=== PATIENT | female | born 1945 | race Caucasian/White ===

== ENCOUNTER 2017-07-21 08:27 | Emergency (ER) | payer BC ==
--- NOTE | 2017-07-21 09:07 | RAD ---
LEFT ANKLE THREE VIEWS: History: 71-year-old female with left ankle pain following a twisting injury after being tripped on stairs, f all. FINDINGS: Mild degenerative changes of the left ankle and joint. No acute fracture or dislocation. IMPRESSION: Degenerative changes without fracture or dislocation. POS: OFF
== END 2017-07-21 09:13 | disposition home or self-care (01) ==
LOC: SCSER 08:27
DX: S93.402A Sprain of unspecified ligament of left ankle, initial encounter (principal); E78.5 Hyperlipidemia, unspecified; I10 Essential (primary) hypertension; W18.30XA Fall on same level, unspecified, initial encounter

== ENCOUNTER 2017-10-22 10:25 | Outpatient (CLI) | payer OTHER ==
[2017-10-22] MEDS ORDERED: Iopamidol 370 76% 100 ML VIAL ONE (13:17)
--- NOTE | 2017-10-22 14:33 | CT ---
CTA OF THE ABDOMEN AND PELVIS WITH BILATERAL LOWER EXTREMITY RUNOFF UTILIZING IV CONTRAST AND 3D REFO RMATTED IMAGING: INDICATION: A 72-year-old female with a history of atherosclerotic disease within the abdomen and pelvis with per ipheral arterial disease into the extremities. The patient is having intermittent vascular claudicat ion. The patient is complaining more of pain and cramping in the right leg. The patient has a histo ry of triple cardiac bypass and stents in the leg. COMPARISON: Prior CTA of the abdomen and pelvis with bilateral lower extremity runoff dated 08/23/15. FINDINGS: ABDOMEN: There is mild bibasilar atelectasis. The liver, spleen, and adrenal glands appear within normal limits. The kidneys are normal-appearing. No free fluid or enlarged lymph nodes are evident. PELVIS: The uterus is surgically absent. The bladder, rectum, and perirectal soft tissues are unremarkable. There is scattered diverticula involving the colon without evidence of active diverticulitis. There is a normal appendix in the right lower quadrant. No free fluid or enlarged lymph nodes are evident. There is scattered degenerative and osteoarthritic change. No definite acute fracture or subluxation is noted. There are surgical clips seen within the medial soft tissues of the left foreleg and left knee consistent with saphenous vein graft harvesting. VASCULATURE: There is moderate to severe atherosclerotic calcification involving the abdominal aorta and pelvic va sculature. No aneurysmal dilatation is evident. No appreciable stenosis seen involving the aorta. There has been interval placement of endograft stent within the left common iliac artery. The stents appear to be patent. There is mild atherosclerotic narrowing involving the origin of the celiac which is stable to the augustina or exam. There is moderate narrowing of the origin of the celiac artery which is stable to the prior exam. There is mild narrowing involving the SMA origin. There is stable severe narrowing involving the origin and proximal 1/3 segment of the left renal artery. There is mild to moderate narrowing in volving the origin of the right renal artery. There is a duplicated right renal artery that appears to be patent. The HERNANDEZ appears to be patent. The left external iliac artery is widely patent. There is some mild narrowing involving the proximal left common femoral artery. There is severe narrowing involving the origin of the left profunda fem oral artery. There is mild atherosclerotic irregularity involving the left superficial femoral arter y and proximal left popliteal artery. There is moderate narrowing involving the proximal aspect of t he left anterior tibial artery that is stable to the prior exam. The tibioperoneal trunk is patent. There is at least 3-vessel runoff to the level of the ankle. The left common iliac artery demonstrates some mild atherosclerotic irregularity which is stable to t he prior exam. The iliac bifurcation is patent. The right common iliac artery demonstrates some mil d atherosclerotic irregularity. There is mild atherosclerotic narrowing involving the right common f emoral artery. There is moderate narrowing involving the origin of the right profunda femoral artery which has progressed from the prior exam. There is mild atherosclerotic irregularity involving the right superficial femoral artery. There is mild atherosclerotic irregularity involving the right pop liteal artery. There is moderate narrowing involving the proximal anterior tibial artery that appear s slightly worsened from the prior exam. The tibioperoneal trunk appears patent. There is 3-vessel runoff to the level of the ankle. IMPRESSION: 1. Stable moderate celiac and mild superior mesenteric artery origin narrowing. 2. Stable severe left and mild to moderate right main renal artery stenosis. 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 3. Interval endograft stenting of the left common iliac artery. The stent is patent. There is mild to moderate atherosclerotic irregularity involving the distal left superficial femoral artery which appears stable to the prior exam. There is stable moderate atherosclerotic narrowing involving the o rigin and proximal aspect of the left anterior tibial artery. 4. Mild atherosclerotic irregularity involving the right superficial femoral artery and right poplit eal artery. There is worsening moderate narrowing involving the proximal right anterior tibial arter y when compared to the prior exam. 5. Colonic diverticulosis. 6. Other chronic findings as above. POS: DIANNE
== END 2017-10-22 10:26 | disposition home or self-care (01) ==
LOC: CT 10:25
PROVIDERS: ATTEND Thoracic Surgery (Cardiothoracic Vascular Surgery)
DX: I70.213 Atherosclerosis of native arteries of extremities with intermittent claudication, bilateral legs (principal); I77.1 Stricture of artery; K57.30 Diverticulosis of large intestine without perforation or abscess without bleeding; Z95.820 Peripheral vascular angioplasty status with implants and grafts
CPT/HCPCS: 36415; 75635; 82565

== ENCOUNTER 2017-11-26 10:13 | Outpatient (CLI) | payer OTHER ==
[2017-11-26 11:41] LABS: Hemoglobin 11.8 g/dL (12.0-16.0); Mean Corpuscular HGB CONC 33.3 g/dL (32.0-36.0); Mean Corpuscular Hemoglobin 30.3 pg (27.0-31.0); Mean Corpuscular Volume 90.8 fl (81.0-99.0); Mean Platelet Volume 7.6 fL (7.4-10.4); Platelet Count 164 thou/uL (130-400); RBC Distribution Width 12.8 % (11.5-14.5); Red Blood Cell (RBC) Count 3.89 mill/uL (4.20-5.40); White Blood Cell (WBC) Count 6.2 thou/uL (4.8-10.8)
[2017-11-26 11:52] LABS: Anion Gap 12 mmol/L (10-20); BUN (Urea Nitrogen) 20 mg/dL (9.8-20.1); Calc. Creatinine Clearance 0 mL/min (70-130); Calcium 9.5 mg/dL (7.8-10.44); Carbon Dioxide 28 mmol/L (23-31); Chloride 103 mmol/L (98-107); Estimated GFR-MDRD 66; Glucose 106 mg/dL (80-115); Potassium 4.8 mmol/L (3.5-5.1); Sodium 138 mmol/L (136-145)
== END 2017-11-26 10:14 | disposition home or self-care (01) ==
LOC: LABBT 10:13
PROVIDERS: ATTEND Thoracic Surgery (Cardiothoracic Vascular Surgery)
DX: Z01.812 Encounter for preprocedural laboratory examination (principal); I70.213 Atherosclerosis of native arteries of extremities with intermittent claudication, bilateral legs
CPT/HCPCS: 80048; 85027

== ENCOUNTER → 2017-11-29 | Day surgery (SDC) | payer OTHER ==
--- NOTE | 2017-11-25 10:29 | HP ---
HISTORY OF PRESENT ILLNESS: This is a 72-year-old female who has a history of peripheral arterial di sease, who presented about 6 weeks ago with rest pain in her right foot for the prior 3 weeks such th at she was unable to rest. She has been sleeping in a chair for relief. She is able to walk and her leg does give out with walking, but not really a limiting problem. She has had prior left common il iac stent for chronic total occlusion in 08/2015. PAST MEDICAL HISTORY: Hypertension, dyslipidemia, coronary artery disease, moderate carotid artery d isease. PAST SURGICAL HISTORY: Includes coronary bypass grafting x3 in 1998, stenting of the left common deandra ac artery, oophorectomy, hysterectomy. SOCIAL HISTORY: The patient has not smoked in greater than 10 years. She does not drink. ALLERGIES: None known. MEDICATIONS: Pletal 100 b.i.d., venlafaxine 75 daily, hydroxyzine p.r.n., atorvastatin 40 daily, mon telukast sodium 10 mg daily, aspirin 81 a day, Coreg 12.5 b.i.d., lisinopril 20 b.i.d., Plavix 75 a d ay, amlodipine 2.5 a day. PHYSICAL EXAMINATION: GENERAL: Alert and cooperative lady. VITAL SIGNS: Blood pressure 130/60, heart rate 90, weight 240. NECK: Right carotid bruit. CARDIAC: Regular rate and rhythm. No murmurs. LUNGS: Clear to auscultation bilaterally. ABDOMEN: Obese, nontender. EXTREMITIES: She has no peripheral edema. She has palpable left dorsalis pedis pulse and otherwise I cannot feel any other pulses. I am unable to feel femoral pulses and this is not a new issue. Her arm pressure is 150 and her left dorsalis pedis is 90 and biphasic, and a left posterior tibial 90 a nd triphasic. Right dorsalis pedis is 40 and monophasic and posterior tibial was [address] scan shows multiple levels of disease, although none particularly critical. PLAN: At this time is for angiography with probable puncture of the left femoral artery with ultraso und guidance to try and address right lower extremity circulatory problems.
[2017-11-26 10:42] VITALS: BMI 39.8
[~2017-11-29] MED LIST: Heparin 10,000 UNITS/1 ML VIAL ONE; Iopamidol 370 76% 50 ML VIAL FS ONE; Lidocaine 1% (PF) 30 ML VIAL ONE; Midazolam HCl 2 mg/2 ml Vial ONE; Protamine Sulfate 50 MG/5 ML VIAL ONE
--- NOTE | 2017-11-29 08:49 | OP ---
DATE OF PROCEDURE: 11/29/2017 PREOPERATIVE DIAGNOSIS: Rest pain right great toe. PROCEDURE: Abdominal aortogram and right lower extremity runoff, stent placement, right common iliac artery 6 x 17 mm, right external iliac artery 6 x 40 Innova self-expanding stent, left common iliac artery 7 x 17 Express. CONTRAST: 64 mL. FLUOROSCOPY: 13 minutes. PROCEDURE IN DETAIL: After prepping and draping there were no palpable femoral pulses. Ultrasound w as attempted; however, the vessel could never really be clearly identified on the left. Fluoroscopy was then used to guide puncture of the calcified common femoral artery with a micropuncture wire and then exchanged for a 5-Burmese sheath. Angiography was then obtained through the sheath and with the assistance of a Yan catheter and a Verenium wire was advanced into the aorta where a Contra catheter was placed and iliofemoral angiograms obtained. Following this, the right groin was infiltrated wit h lidocaine and fluoroscopy was used to guide puncture of the common femoral artery. Once again, thi s was done with a micropuncture and then converted to a 5-Burmese sheath. Retrograde angiography was obtained, following which the 5 Burmese sheath were exchanged for a long 6 Burmese marker sheaths. Aft er this had been done, the common iliac stents were simultaneously deployed following which the kimberly ter on the right groin was withdrawn and a 6 x 40 Innova stent was placed following which 2 inflation s with the second one being for a minute were performed with a 5 mm balloon. FINDINGS: The patient had a calcified aorta with probably 40-50% stenosis distally. The right comm on iliac appeared to be 60-70% narrowed and the left common iliac 60% above the previous stent. Righ t external iliac had a 90% stenosis in its distal third. The right common femoral artery was heavily calcified with a significant stenosis at the ostium of the superficial and profunda femoral artery. A heavy calcification extended for about 3 cm distally on the superficial femoral artery. Runoff de monstrated probably 80% stenosis of the distal SFA with a calcified popliteal artery on the right wit h maybe a 40-50% stenosis. Runoff consisted of all 3 vessels with no significant stenosis. Followin g completion of the stenting, there was no residual common iliac artery stenosis. The right external iliac artery was widely patent, although there was still some protrusion of the calcium plaque into the stent lumen. The patient tolerated the procedure well.
== END ==
LOC: CCL 05:51
PROVIDERS: ATTEND Thoracic Surgery (Cardiothoracic Vascular Surgery)
PROC: 047C3DZ Dilation of Right Common Iliac Artery with Intraluminal Device, Percutaneous Approach (ICD-10-PCS; principal; 2017-11-29)
PROC: 047H3DZ Dilation of Right External Iliac Artery with Intraluminal Device, Percutaneous Approach (ICD-10-PCS; principal; 2017-11-29)
PROC: 047D3DZ Dilation of Left Common Iliac Artery with Intraluminal Device, Percutaneous Approach (ICD-10-PCS; principal; 2017-11-29)
DX: I70.221 Atherosclerosis of native arteries of extremities with rest pain, right leg (principal); I10 Essential (primary) hypertension; E78.5 Hyperlipidemia, unspecified; I25.10 Atherosclerotic heart disease of native coronary artery without angina pectoris; Z79.02 Long term (current) use of antithrombotics/antiplatelets; Z79.899 Other long term (current) drug therapy; Z98.890 Other specified postprocedural states; Z87.891 Personal history of nicotine dependence
CPT/HCPCS: 37221; 37223; 76942; 80048; 85027; 85347; 99152; 99153; C1725; C1769; C1876; J1644; J2001; J2250; J2720

== ENCOUNTER 2018-02-15 10:34 | Outpatient (CLI) | payer OTHER ==
--- NOTE | 2018-02-15 13:16 | RAD ---
TWO VIEW CHEST: Indication: Shortness of breath. FINDINGS: There is enlargement of the cardiac silhouette and bilateral interstitial prominence. Mild pleural fl uid is seen on the right. Evidence of prior sternotomy. IMPRESSION: CHF with mild right pleural fluid as well as interstitial edema. Recommend continued follow up. POS: DIANNE
== END 2018-02-15 10:35 | disposition home or self-care (01) ==
LOC: SCSRAD 10:34
PROVIDERS: ATTEND Nurse Practitioner Family
DX: J94.8 Other specified pleural conditions (principal); J81.1 Chronic pulmonary edema; I50.9 Heart failure, unspecified
CPT/HCPCS: 71046

== ENCOUNTER 2018-02-15 15:59 | Inpatient (IN) | payer OTHER ==
[2018-02-15 16:42] LABS: #Eosinphils 0.2 thou/uL (0.0-0.7); #Lymphocytes 1.7 thou/uL (1.20-3.40); #Monocytes 0.8 thou/uL (0.11-0.59); %Basophils 0.2 % (0.0-1.0); %Eosinophils 3.1 % (0.0-10.0); %Lymphocytes 30.2 % (21.0-51.0); %Monocytes 13.9 % (0.0-10.0); %Neutrophils 52.6 % (42.0-75.0); Hemoglobin 11.2 g/dL (12.0-16.0); Mean Corpuscular HGB CONC 32.8 g/dL (32.0-36.0); Mean Corpuscular Hemoglobin 29.9 pg (27.0-31.0); Mean Corpuscular Volume 91.2 fl (81.0-99.0); Platelet Count 145 thou/uL (130-400); RBC Distribution Width 13.8 % (11.5-14.5); Red Blood Cell (RBC) Count 3.74 mill/uL (4.20-5.40); White Blood Cell (WBC) Count 5.7 thou/uL (4.8-10.8)
[2018-02-15 16:55] LABS: ALT (SGPT) 25 U/L (8-55); AST (SGOT) 37 U/L (5-34); Albumin 4.1 g/dL (3.4-4.8); Alkaline Phosphatase 57 U/L (40-150); Anion Gap 10 mmol/L (10-20); BUN (Urea Nitrogen) 13 mg/dL (9.8-20.1); Bilirubin, Total 0.6 mg/dL (0.2-1.2); CK (CPK) 42 U/L (29-168); Calc. Creatinine Clearance 0 mL/min (70-130); Calcium 9.5 mg/dL (7.8-10.44); Carbon Dioxide 25 mmol/L (23-31); Chloride 107 mmol/L (98-107); Estimated GFR-MDRD 80; Globulin 2.8 g/dL (2.4-3.5); Glucose 99 mg/dL (80-115); Potassium 4.5 mmol/L (3.5-5.1); Protein, Total 6.9 g/dL (6.0-8.3); Sodium 137 mmol/L (136-145)
[2018-02-15 17:00] LABS: CKMB 0.6 ng/mL (0-6.6); Troponin I Less than 0.010 ng/mL (< 0.028)
[2018-02-15] MEDS ORDERED: hydrALAZINE 20 MG/ML VIAL ONE (17:10)
[2018-02-15] MEDS ORDERED: Furosemide 40 MG/4 ML VIAL ONE (18:05)
[2018-02-15] MEDS ORDERED: Ondansetron HCl/PF 4 MG/2 ML Vial ONE (18:08)
[2018-02-15] MEDS ORDERED: Ondansetron HCl/PF 4 MG/2 ML Vial IVP PRN (19:22)
[2018-02-15] MEDS ORDERED: Ondansetron ODT 4 MG TAB SL PRN (19:22)
[2018-02-15 19:43] VITALS: BMI 41.3
[2018-02-15 20:15] LABS: Troponin I Less than 0.010 ng/mL (< 0.028)
[2018-02-15] MEDS ORDERED: Acetaminophen 325 MG TAB PO PRN (20:15)
[2018-02-15] MEDS ORDERED: Zolpidem Tartrate 5 MG TAB PO PRN (20:15)
[2018-02-15] MEDS ORDERED: PROVENTIL INHALER 6.7 G (200 INHALATIONS) INH PRN (20:20)
[2018-02-15] MEDS ORDERED: hydrOXYzine 25 MG TAB PO PRN (20:20)
[2018-02-15] MEDS ORDERED: hydrALAZINE 20 MG/ML VIAL SLOW IVP PRN (20:22)
[2018-02-15] MEDS ORDERED: Amlodipine 5 MG TAB PO SCH (21:00)
[2018-02-15] MEDS: Fish Oil 1,000 MG CAP PO SCH (21:21)
[2018-02-15] MEDS: Gabapentin 300 MG CAP PO SCH (21:21)
[2018-02-15] MEDS: Calcium Carbonate + Vit D 1 TAB PO SCH (21:21)
[2018-02-15] MEDS: Carvedilol 25 MG TAB PO SCH (21:22)
[2018-02-15] MEDS: Clopidogrel Bisulfate 75 MG TAB PO SCH (21:23)
[2018-02-15] MEDS: Venlafaxine HCl XR 75 MG CAP PO SCH (21:23)
[2018-02-15] MEDS: Aspirin 81 mg Enteric Coated Tablet PO SCH (21:23)
[2018-02-15] MEDS: Lisinopril 10 MG TAB PO SCH (21:25)
[2018-02-15 22:09] LABS: Troponin I Less than 0.010 ng/mL (< 0.028)
--- NOTE | 2018-02-16 00:12 | HP ---
DATE OF ADMISSION: 02/15/2018 ADMITTING PHYSICIAN: Dr. Erick Denton, Dr. Gabriele mena. HISTORY OF PRESENT ILLNESS: The patient is a 72-year-old female with a history of peripheral arteria l disease as well as atherosclerotic coronary artery disease. She is status post recent iliac stent placement by Dr. Banda approximately 2 months ago. She noted onset of difficulty breathing for appro ximately 3-4 days. She apparently had been seen at the local [facility]. She has been marlee ated for upper respiratory infection. She states apparently lab work and chest x-ray was done today and she was sent to the emergency room. She was seen and evaluated in the emergency room where she w as found to have elevated BNP with a chest x-ray compatible with congestive heart failure and pulmona ry edema. She has not noted any chest pain. She has noted shortness of breath with exertion. She h as not noted any paroxysmal nocturnal dyspnea or orthopnea. Although, she does note that she is havi ng some difficulty sleeping at night. She has no prior history of congestive heart failure. She is status post coronary bypass grafts many years ago. Otherwise, she has no complaints, no fever, nausea, vomiting, diarrhea. Once again, no chest pain bocanegra s been reported. ALLERGIES: She has no known allergies. CURRENT MEDICATIONS: Being reviewed and will be documented later in final reconciliation. PAST MEDICAL HISTORY: Medical history is positive for coronary artery bypass graft in 1998 with sten ting of the iliac arteries, as well as hysterectomy. Medical history is positive for hypertension, h yperlipidemia, and coronary artery disease. SOCIAL AND PERSONAL HISTORY: She does not smoke nor does she drink alcohol. She is retired. REVIEW OF SYSTEMS: Gastrointestinal: Negative. Genitourinary: Negative. Cardiovascular: Positiv e as above. Respiratory: Positive as above. Neurologic: Otherwise, negative. PHYSICAL EXAMINATION: VITAL SIGNS: Her blood pressure is 192/76, pulse 72, respirations 22, O2 sat is 97% on room air, tem perature 98.6. GENERAL: She appears to be alert, in no distress is otherwise noted. HEENT: Normocephalic, atraumatic. Sclerae and conjunctivae clear. NECK: Supple, full range of motion, no masses, no bruits are auscultated. LUNGS: Reveal bilateral breath sounds. HEART: Reveals a regular rate and rhythm without murmur, gallops or rubs. ABDOMEN: Soft, nontender, bowel sounds are present and active. No hepatosplenomegaly is noted. EXTREMITIES: Does show a trace to 1+ edema bilaterally, somewhat worse on the left than on the right , no cyanosis otherwise noted. LABORATORY DATA AND X-RAY FINDINGS: Her hemoglobin is 11.2, hematocrit is 34.1. Sodium 137, potassi um 4.5, chloride 107, CO2 of 25, BUN 13, creatinine 0.72. BNP is 644. Initial troponin is less than 0.1. Chest x-ray shows cardiomegaly with pulmonary edema. IMPRESSION: 1. New onset of congestive heart failure. 2. Previous history of atherosclerotic coronary artery disease. 3. History of peripheral vascular disease. PLAN: The patient has been admitted, will be continued on Lasix p.o. through the night. We will con trol her blood pressure with hydralazine and her home medications. We will consult Cardiology. Dr. Denton will take over care in a.m.
[2018-02-16 05:55] LABS: Anion Gap 11 mmol/L (10-20); BUN (Urea Nitrogen) 16 mg/dL (9.8-20.1); Calc. Creatinine Clearance 125 mL/min (70-130); Calcium 9.1 mg/dL (7.8-10.44); Carbon Dioxide 24 mmol/L (23-31); Chloride 106 mmol/L (98-107); Estimated GFR-MDRD 80; Glucose 99 mg/dL (80-115); Potassium 3.8 mmol/L (3.5-5.1); Sodium 137 mmol/L (136-145)
--- NOTE | 2018-02-16 08:16 | PRG ---
DATE OF SERVICE: 02/16/2018 SUBJECTIVE: The patient is feeling significantly better. She has less shortness of breath. She has decreased swelling and she is able to lay flat last night. She continues to have cough, but no feve rs or chills. OBJECTIVE: VITAL SIGNS: Temperature 99.2, pulse of 79 and regular, respirations 20, blood pressure 147/65, puls e ox is 93% on room air. In's and out's, in 120, out 1700. Weight today is 241 pounds. GENERAL: She is awake and alert, in no acute distress. No conversational dyspnea. NECK: Supple. HEART: Regular rate and rhythm. LUNGS: With rales at the bases. ABDOMEN: Obese. EXTREMITIES: With trace edema. LABORATORY DATA: Reviewed from yesterday. Troponin I less than 0.01 x3. BNP yesterday evening was 644. Sodium 137, potassium 3.8, chloride 106, CO2 of 24, BUN and creatinine is 16 and 0.72, serum gl ucose of 99. X-RAY FINDINGS: Chest x-ray from yesterday revealed congestive heart failure with mild right pleural effusion and interstitial edema. ASSESSMENT AND PLAN: This is a 72-year-old female with known coronary artery disease, status post co ronary artery bypass graft, status post recent peripheral revascularization, now with new onset conge stive heart failure. We will continue diuresis and check echocardiogram. Await cardiology evaluatio n. 1. Hypertension. We will continue her antihypertensives. 2. Coronary artery disease, atherosclerotic cardiovascular disease. We will continue anticoagulatio n.
[2018-02-16] MEDS ORDERED: Furosemide 40 MG/4 ML VIAL SLOW IVP SCH ×3 (09:30→20:00)
[2018-02-16] MEDS ORDERED: Spironolactone 25 MG TAB PO SCH ×2 (09:45)
[2018-02-16] MEDS: Atorvastatin Calcium 40 MG TAB PO SCH (10:03)
[2018-02-16] MEDS: Carvedilol 25 MG TAB PO SCH ×2 (10:03→21:16)
[2018-02-16] MEDS: Fish Oil 1,000 MG CAP PO SCH ×3 (10:03→21:17)
[2018-02-16] MEDS: Loratadine 10 MG TAB PO SCH (10:03)
[2018-02-16] MEDS: Calcium Carbonate + Vit D 1 TAB PO SCH ×3 (10:04→21:16)
[2018-02-16] MEDS: Lisinopril 10 MG TAB PO SCH ×2 (10:04→21:17)
[2018-02-16] MEDS: Furosemide 40 MG TAB PO SCH (10:04)
[2018-02-16] MEDS: Cilostazol 100 MG TAB PO SCH ×2 (10:07→15:28)
[2018-02-16] MEDS ORDERED: Potassium Chloride 20 MEQ TAB PO SCH ×2 (13:00→20:00)
[2018-02-16] MEDS: Furosemide 40 MG/4 ML VIAL SLOW IVP SCH (13:41)
[2018-02-16] MEDS: Spironolactone 25 MG TAB PO SCH (17:09)
[2018-02-16] MEDS: Aspirin 81 mg Enteric Coated Tablet PO SCH (21:16)
[2018-02-16] MEDS: Gabapentin 300 MG CAP PO SCH (21:17)
[2018-02-16] MEDS: Clopidogrel Bisulfate 75 MG TAB PO SCH (21:17)
[2018-02-16] MEDS: Montelukast Sodium 10 mg Tablet PO SCH (21:18)
[2018-02-16] MEDS: Venlafaxine HCl XR 75 MG CAP PO SCH (21:18)
[2018-02-16] MEDS: FATTY ACID PO SCH (22:37)
[2018-02-16] MEDS: FLAXSEED PO SCH (22:37)
[2018-02-16] MEDS: OMEGA3 PO SCH (22:37)
[2018-02-17] MEDS: Furosemide 40 MG/4 ML VIAL SLOW IVP SCH ×2 (05:17→14:41)
[2018-02-17 05:50] LABS: Anion Gap 12 mmol/L (10-20); BUN (Urea Nitrogen) 19 mg/dL (9.8-20.1); Calc. Creatinine Clearance 111 mL/min (70-130); Calcium 8.9 mg/dL (7.8-10.44); Carbon Dioxide 26 mmol/L (23-31); Chloride 105 mmol/L (98-107); Estimated GFR-MDRD 71; Glucose 92 mg/dL (80-115); Potassium 4.3 mmol/L (3.5-5.1); Sodium 139 mmol/L (136-145)
--- NOTE | 2018-02-17 08:31 | PRG ---
DATE OF SERVICE: 02/17/2018 The patient is feeling much better. She is not short of breath. Denies chest pain. She continues t o have a mild cough on and off and congestion, no fevers or chills. She has decreased swelling in he r legs. She is anxious to get home. PHYSICAL EXAMINATION: VITAL SIGNS: Temperature 98.5, pulse is 67, respirations 18, blood pressure 163/69, pulse ox is 92-9 3% on room air. GENERAL: She is awake and alert, in no acute distress. Speech is clear. NECK: Supple. HEART: Regular rate and rhythm. LUNGS: With a few rales at the bases, but clearer than yesterday. ABDOMEN: Soft. EXTREMITIES: With no edema. LABORATORY DATA: Sodium 139, potassium 4.3, chloride 105, CO2 26, BUN and creatinine 19 and 0.8. Se rum glucose of 92. ASSESSMENT AND PLAN: 1. This is a 72-year-old female patient with known coronary disease, status post coronary bypass gra ft, now with new onset congestive heart failure. I appreciate Dr. Tabares's input and assistance. We will continue diuresis per Cardiology. 2. Coronary artery disease. We will continue anticoagulation. 3. Hypertension. Continue antihypertensives. PLAN: We will arrange outpatient cardiac rehabilitation. Plan for discharge home when okay with Car diology.
[2018-02-17] MEDS ORDERED: Spironolactone 25 MG TAB PO SCH (09:00)
[2018-02-17] MEDS: Atorvastatin Calcium 40 MG TAB PO SCH (09:17)
[2018-02-17] MEDS: Fish Oil 1,000 MG CAP PO SCH ×3 (09:17→20:08)
[2018-02-17] MEDS: Loratadine 10 MG TAB PO SCH (09:17)
[2018-02-17] MEDS: Calcium Carbonate + Vit D 1 TAB PO SCH ×3 (09:17→20:03)
[2018-02-17] MEDS: Carvedilol 25 MG TAB PO SCH ×2 (09:18→20:03)
[2018-02-17] MEDS: Cilostazol 100 MG TAB PO SCH ×2 (09:19→16:24)
[2018-02-17] MEDS: Lisinopril 10 MG TAB PO SCH ×2 (09:19→20:03)
[2018-02-17] MEDS: Furosemide 40 MG TAB PO SCH (09:19)
--- NOTE | 2018-02-17 09:44 | CON ---
DATE OF CONSULTATION: 02/17/2018 REASON FOR CONSULTATION: Diastolic congestive heart failure. HISTORY OF PRESENT ILLNESS: Ms. Sybil Haas is a very pleasant patient. She has a long history of hypertension, somewhat difficult to control and peripheral edema. She has history of severe aaliyah pheral vascular disease and has undergone many interventions and is taken care of from the vascular [facility] by Dr. Banda. The patient was admitted to the hospital with progressive difficulty breathi ng on 02/15/2018. She has received intravenous diuretics and is feeling better. PAST MEDICAL HISTORY: 1. She has a history of peripheral vascular disease. She had iliac stent implantation a couple guerita hs ago. 2. She was having shortness of breath for 3-4 days prior to admission. 3. Prior to admission, she was found to have a high BNP and pulmonary edema on chest x-ray. She als o had shortness of breath with low level activity. She said she did not have to sit up at night to b reathe, but reported that it was difficult to sleep, so she probably was having some trouble breathin g. 4. Coronary disease. PAST SURGICAL HISTORY: Previous bypass years ago. ALLERGIES: None known. MEDICATIONS: The patient was on amlodipine 2.5 mg a day, carvedilol, lisinopril, aspirin and Plavix, as well as statin. SOCIAL HISTORY: Does not smoke or drink alcohol. REVIEW OF SYSTEMS: CONSTITUTIONAL: No significant weight gain or loss. VISION: No changes. HEARING: No changes. PULMONARY: No cough or wheezing. GASTROINTESTINAL: No nausea, vomiting, diarrhea. SKIN: No rashes. NEUROLOGIC: No unilateral weakness or numbness. PSYCHIATRIC: No unusual depression or anxiety. HEMATOLOGIC: No unusual bruising. GENITOURINARY: No burning with urination. PHYSICAL EXAMINATION: GENERAL: This is a delightful elderly woman. She is feeling much better since receiving the diureti cs yesterday. VITAL SIGNS: Her blood pressure is all the way down to 134/70, systolic was 187 on admission. HEENT: Eyes; sclerae nonicteric. Mouth; mucous branch moist. NECK: Supple, no lymphadenopathy. LUNGS: Clear, no wheezing, rales or rhonchi. CARDIAC: Normal S1, normal S2. There is no murmur, rub or gallop. ABDOMEN: Soft, nontender, no hepatosplenomegaly. EXTREMITIES: Warm, dry, no clubbing or cyanosis. Now, there is only mild edema. There was more barbie hardin previously. PERTINENT LABORATORY AND X-RAY FINDINGS: Her potassium was 4.5 on admission, after receiving diureti cs as well as potassium is 4.3. BNP 644. Chest x-ray showed pulmonary vascular congestion. Troponin levels were negative. Echocardiogram showed normal left ventricular systolic function with evidence of diastolic dysfunctio n. ASSESSMENT: 1. Diastolic congestive heart failure, acute, likely on chronic. 2. Previous bypass surgery. 3. Peripheral vascular disease. 4. Hypertension. 5. She has been placed on intravenous diuretics and is having a very good response. The patient was reported at -3.6 liters yesterday and -1.58 liters the day before. She is still diuresing very well . 6. Coronary artery disease. No evidence of angina. 7. Peripheral vascular disease with previous interventions. PLAN: 1. She is to continue with intravenous diuretics. 2. I have taken her off amlodipine in view of congestive heart failure. 3. She has been placed on spironolactone. I made it twice a day, but in view of the Nando inhibitors I am going to go ahead and reduce it down to once a day. 4. Change to oral diuretics tomorrow morning. 5. Should be ready to go home tomorrow morning.
[2018-02-17] MEDS: Spironolactone 25 MG TAB PO SCH (09:51)
[2018-02-17] MEDS: Aspirin 81 mg Enteric Coated Tablet PO SCH (20:03)
[2018-02-17] MEDS: Gabapentin 300 MG CAP PO SCH (20:03)
[2018-02-17] MEDS: Venlafaxine HCl XR 75 MG CAP PO SCH (20:03)
[2018-02-17] MEDS: Montelukast Sodium 10 mg Tablet PO SCH (20:03)
[2018-02-17] MEDS: Clopidogrel Bisulfate 75 MG TAB PO SCH (20:03)
[2018-02-18 05:39] LABS: Anion Gap 12 mmol/L (10-20); BUN (Urea Nitrogen) 32 mg/dL (9.8-20.1); Calc. Creatinine Clearance 78 mL/min (70-130); Calcium 9.7 mg/dL (7.8-10.44); Carbon Dioxide 29 mmol/L (23-31); Chloride 100 mmol/L (98-107); Estimated GFR-MDRD 49; Glucose 100 mg/dL (80-115); Potassium 4.2 mmol/L (3.5-5.1); Sodium 137 mmol/L (136-145)
[2018-02-18] MEDS ORDERED: Spironolactone 25 MG TAB PO SCH (08:00)
[2018-02-18] MEDS: Cilostazol 100 MG TAB PO SCH (08:53)
[2018-02-18] MEDS: Atorvastatin Calcium 40 MG TAB PO SCH (08:53)
[2018-02-18] MEDS: Lisinopril 10 MG TAB PO SCH (08:53)
[2018-02-18] MEDS: Carvedilol 25 MG TAB PO SCH (08:53)
[2018-02-18] MEDS: Loratadine 10 MG TAB PO SCH (08:54)
[2018-02-18] MEDS: Calcium Carbonate + Vit D 1 TAB PO SCH (08:54)
[2018-02-18] MEDS: Fish Oil 1,000 MG CAP PO SCH (08:55)
[2018-02-18] MEDS ORDERED: Furosemide 40 MG TAB PO SCH (09:00)
[2018-02-18 11:31] VITALS: BP 133/63; TEMP 98.5
--- NOTE | 2018-02-21 09:10 | DIS ---
DATE OF ADMISSION: 02/15/2018 DATE OF DISCHARGE: 02/18/2018 ADMISSION DIAGNOSIS: New onset congestive heart failure. DISCHARGE DIAGNOSES: Congestive heart failure, status post coronary bypass graft, cardiomyopathy, co ronary artery disease, hypertension. CONSULTATIONS: Dr. Tabares for Cardiology. PROCEDURES: Telemetry monitoring, echocardiogram, IV diuresis. HOSPITAL COURSE: This is a 72-year-old female patient with known coronary disease, status post coron sarah artery bypass graft in 1998, who presented to Emergency Department with difficulty breathing over the past 3-4 days. She was seen for upper respiratory infection by the [facility] locally as she continued to worsen. She had lab work and chest x-ray done on day of admission, which showed evidenc e of heart failure on the chest x-ray, pulmonary edema and elevated BNP. She was admitted. She was started on IV diuresis. Her blood pressure remained stable. Dr. Tabares saw the patient in [facility]. Dr. Tabares recommended continuing diuresis for diastolic congestive heart failure, acute on chron ic. Her amlodipine was discontinued and started on spironolactone. He agreed with changing to oral diuresis. Echocardiogram was done which revealed ejection fraction of 60%-65%, normal LV size, moder ate tricuspid regurgitation. Left atrium is moderately dilated. She was stable for discharge on the day of discharge. DISCHARGE PHYSICAL EXAMINATION: VITAL SIGNS: Temperature 98.5, pulse is 66, respirations 16, blood pressure 133/63, pulse ox is 94% on room air. GENERAL: She is awake and alert, in no acute distress. Speech is clear. NECK: Supple. HEART: Regular rate and rhythm, no murmurs, rubs or gallops. LUNGS: Clear bilaterally. ABDOMEN: Soft. EXTREMITIES: With mild edema. DISCHARGE LABORATORY DATA: Sodium 137, potassium 4.2, chloride 100, CO2 of 29, BUN and creatinine 32 and 1.11 with a GFR of 49. Cardiac enzymes were negative. DISCHARGE MEDICATIONS: Trinity fatty acids b.i.d., hydroxyzine 25 mg at bedtime p.r.n., Cilostazol 100 mg b.i.d., Singulair 10 mg daily, lisinopril 10 mg b.i.d., atorvastatin 40 mg daily, venlafaxine ER 75 mg at bedtime, carvedilol 12.5 mg b.i.d., aspirin 81 mg daily, Astelin 2 sprays daily, Candace 180 mg daily, Plavix 75 mg daily, gabapentin 300 mg at bedtime, albuterol p.r.n., aspirin 81 mg daily, L asix 40 mg b.i.d., spironolactone 25 mg daily, Ambien p.r.n. FOLLOWUP INSTRUCTIONS: Patient to follow up with cardiac rehab in the [facility]. Follow up in my office in [address] Tabares in 2-3 weeks.
== END 2018-02-18 11:39 | disposition home or self-care (01) | DRG 293 ==
LOC: ERS 15:59 → 2NO 17:37
PROVIDERS: ADMIT Family Medicine; ATTEND Family Medicine
DX: I11.0 Hypertensive heart disease with heart failure (principal); I50.33 Acute on chronic diastolic (congestive) heart failure; I42.9 Cardiomyopathy, unspecified; E78.5 Hyperlipidemia, unspecified; I25.10 Atherosclerotic heart disease of native coronary artery without angina pectoris; I73.9 Peripheral vascular disease, unspecified; Z79.82 Long term (current) use of aspirin; Z79.899 Other long term (current) drug therapy; Z95.820 Peripheral vascular angioplasty status with implants and grafts; Z95.1 Presence of aortocoronary bypass graft
CPT/HCPCS: 36415; 71046; 80048; 80053; 82553; 83880; 84484; 85025; 85379; 93005; 93306; 93798; 96374; 96375; A4216; J0360; J1940; J2405

== ENCOUNTER 2018-04-27 09:16 | Outpatient (CLI) | payer OTHER | END 2018-04-27 09:17 | disposition home or self-care (01) | LOC: BICMAMMO 09:16 | PROVIDERS: ATTEND Family Medicine | DX: Z12.31 Encounter for screening mammogram for malignant neoplasm of breast (principal); R92.1 Mammographic calcification found on diagnostic imaging of breast; Z80.3 Family history of malignant neoplasm of breast | CPT/HCPCS: 77063; 77067 ==

== ENCOUNTER 2019-05-17 08:16 | Outpatient (CLI) | payer OTHER ==
--- NOTE | 2019-05-17 09:30 | MMO ---
Bilateral MAMMO Bilat Screen [facility]. CLINICAL HISTORY: Patient is 73 years old and is seen for screening. The patient has the following family history of breast cancer: cousin female, at age 30. The patient has no personal history of cancer. VIEWS: The views performed were: bilateral craniocaudal with tomosynthesis and bilateral mediolateral oblique with tomosynthesis. FILMS COMPARED: The present examination has been compared to a prior imaging study performed at [facility] on 04/27/2018. MAMMOGRAM FINDINGS: There are scattered fibroglandular densities. There are stable benign appearing calcifications seen in both breasts. There are no suspicious masses, suspicious calcifications, or new areas of architectural distortion. IMPRESSION: THERE IS NO MAMMOGRAPHIC EVIDENCE OF MALIGNANCY. A ROUTINE FOLLOW-UP MAMMOGRAM IN 1 YEAR IS RECOMMENDED. THE RESULTS OF THIS EXAM WERE SENT TO THE PATIENT. ACR BI-RADS Category 2 - Benign finding MAMMOGRAPHY NOTE: 1. A negative mammogram report should not delay a biopsy if a dominant of clinically suspicious mass is present. 2. Approximately 10% to 15% of breast cancers are not detected by mammography. 3. Adenosis and dense breasts may obscure an underlying neoplasm. Reported by: TIAGO MEJÍA MD Electonically Signed: [id number]
== END 2019-05-17 08:17 | disposition home or self-care (01) ==
LOC: BICMAMMO 08:16
PROVIDERS: ATTEND Family Medicine
DX: Z12.31 Encounter for screening mammogram for malignant neoplasm of breast (principal); Z80.3 Family history of malignant neoplasm of breast
CPT/HCPCS: 77063; 77067

== ENCOUNTER 2020-07-03 14:38 | Outpatient (CLI) | payer OTHER ==
--- NOTE | 2020-07-03 15:09 | MMO ---
Bilateral MAMMO Bilat Screen [facility]. CLINICAL HISTORY: Patient is 74 years old and is seen for screening. The patient has the following family history of breast cancer: cousin female, at age 30. The patient has no personal history of cancer. VIEWS: The views performed were: bilateral craniocaudal with tomosynthesis and bilateral mediolateral oblique with tomosynthesis. FILMS COMPARED: The present examination has been compared to prior imaging studies performed at [facility] on 04/27/2018 and 05/17/2019, and at [facility] on 10/09/2015 and 12/11/2016. This study has been interpreted with the assistance of computer-aided detection. MAMMOGRAM FINDINGS: There are scattered fibroglandular densities. There are stable benign appearing calcifications seen in both breasts. There are no suspicious masses, suspicious calcifications, or new areas of architectural distortion. IMPRESSION: THERE IS NO MAMMOGRAPHIC EVIDENCE OF MALIGNANCY. A ROUTINE FOLLOW-UP MAMMOGRAM IN 1 YEAR IS RECOMMENDED. THE RESULTS OF THIS EXAM WERE SENT TO THE PATIENT. ACR BI-RADS Category 2 - Benign finding MAMMOGRAPHY NOTE: 1. A negative mammogram report should not delay a biopsy if a dominant of clinically suspicious mass is present. 2. Approximately 10% to 15% of breast cancers are not detected by mammography. 3. Adenosis and dense breasts may obscure an underlying neoplasm. Reported by: TIAGO MEJÍA MD Electonically Signed: [id number]
== END 2020-07-03 14:39 | disposition home or self-care (01) ==
LOC: BICMAMMO 14:38
PROVIDERS: ATTEND Family Medicine
DX: Z12.31 Encounter for screening mammogram for malignant neoplasm of breast (principal); Z80.3 Family history of malignant neoplasm of breast
CPT/HCPCS: 77063; 77067

== ENCOUNTER 2022-12-03 08:46 | Outpatient (CLI) | payer BC | END 2022-12-03 08:47 | disposition home or self-care (01) | LOC: BICMAMMO 08:46 | PROVIDERS: ATTEND Family Medicine | DX: Z12.31 Encounter for screening mammogram for malignant neoplasm of breast (principal); Z80.3 Family history of malignant neoplasm of breast | CPT/HCPCS: 77063; 77067 ==

== ENCOUNTER 2024-06-29 14:30 | Outpatient (CLI) | payer BC | END 2024-06-29 14:31 | disposition home or self-care (01) | LOC: BICMAMMO 14:30 | PROVIDERS: ATTEND Family Medicine | DX: Z12.31 Encounter for screening mammogram for malignant neoplasm of breast (principal); Z80.3 Family history of malignant neoplasm of breast | CPT/HCPCS: 77063; 77067 ==